=== PATIENT | female | born 1960 | race Caucasian/White ===

== ENCOUNTER → 2018-04-28 | Outpatient (CLI) | payer BC | LOC: CARD 13:26 | PROVIDERS: ATTEND Internal Medicine Cardiovascular Disease | DX: I10 Essential (primary) hypertension (principal); G47.33 Obstructive sleep apnea (adult) (pediatric); E66.9 Obesity, unspecified; E11.9 Type 2 diabetes mellitus without complications | CPT/HCPCS: 93306 ==

== ENCOUNTER → 2020-12-29 | Outpatient (CLI) | payer BC | LOC: CARD 14:40 | PROVIDERS: ATTEND Internal Medicine Cardiovascular Disease | DX: I10 Essential (primary) hypertension (principal); I25.10 Atherosclerotic heart disease of native coronary artery without angina pectoris | CPT/HCPCS: 93306 ==

== ENCOUNTER → 2021-01-05 | Outpatient (CLI) | payer BC ==
[~2021-01-05] VITALS: Ht 162 cm; Wt 118.0 kg
[~2021-01-05] MED LIST: CATHETER FLUSH 10 ML SYR IV PRN; REGADENOSON 0.4 MG/5 ML SYR (LEXISCAN) IV ONE
[2021-01-05 09:23] VITALS: BP 143/94
--- NOTE | 2021-01-05 11:07 | Cardiology Stress Test Report ---
Stress Test Report Date of Procedure/Referring: Date of Procedure: January 05, 2021 PCP Whitney Duran MD Admitting Physician Vandana Lindsey MD Indications: HTN Baseline Heart Rate: 59 Baseline Blood Pressure: Blood Pressure Systolic: 143 Blood Pressure Diastolic: 94 Baseline Vitals Vital Signs Date Time Temp Pulse Resp B/P (MAP) Pulse Ox O2 Delivery O2 Flow Rate FiO2 01/05/21 09:23 61 143/94 (110) 98 Baseline EKG: Baseline EKG: NSR Summary After explaining the procedure to the patient, she signed a consent and then brought to the stress nuclear laboratory. Patient received 0.4 mg Lexiscan for stress test, ECG, heart rate and blood pressure were monitored continuously. Resting and stress dose of radio tracer were injected, imaging was acquired and reviewed in short axis, horizontal long axis and vertical long axis views. TID: 1.08 SSS: 7 SDS: 5 EF: 64 1. Patient tolerated Lexiscan well 2. Breast attenuation with mild reversible ischemia involving the basal to mid anterior wall 3. Normal left ventricular size, EF 64% WHITNEY DURAN MD January 05, 2021 11:07
== END ==
LOC: CARD 08:45
PROVIDERS: ATTEND Internal Medicine Cardiovascular Disease
DX: I10 Essential (primary) hypertension (principal); I25.10 Atherosclerotic heart disease of native coronary artery without angina pectoris
CPT/HCPCS: 78452; 93017; A9502

== ENCOUNTER 2021-01-14 13:00 | Day surgery (SDC) | payer BC ==
[~2021-01-14] VITALS: Ht 162 cm; Wt 117.0 kg
[2021-01-14] VITALS (15 sets, daily range): BP systolic 107–154; BP diastolic 63–89
[2021-01-14 11:15] LABS: HEMATOCRIT 40 % (35-52); HEMOGLOBIN 13.3 g/dL (11.5-16.0); MEAN CORPUSCULAR HEMOGLOBIN 31 pg (25-34); MEAN CORPUSCULAR HGB CONC 33 g/dL (32-36); MEAN CORPUSCULAR VOLUME 92 fL (80-99); PLATELET COUNT 308 10^3/uL (130-400); WHITE BLOOD COUNT 8.9 10^3/uL (4.3-11.0)
[2021-01-14 11:16] LABS: BILIRUBIN,URINE NEGATIVE (NEGATIVE); CLARITY,URINE CLEAR; COLOR,URINE YELLOW; GLUCOSE, URINE (UA) NEGATIVE (NEGATIVE); KETONES,URINE NEGATIVE (NEGATIVE); LEUKOCYTE ESTERASE ,URINE NEGATIVE (NEGATIVE); NITRITE,URINE NEGATIVE (NEGATIVE); PH,URINE 6.5 (5-9); PROTEIN,URINE NEGATIVE (NEGATIVE)
[2021-01-14 11:23] LABS: BACTERIA,URINE NEGATIVE /HPF; WBC,URINE RARE /HPF
[2021-01-14 11:26] LABS: PROTHROMBIN TIME PATIENT 13.1 SEC (12.2-14.7)
--- NOTE | 2021-01-14 11:27 | Diagnostic Imaging Report ---
EXAMINATION: Chest 1 view HISTORY: Preoperative evaluation COMPARISON: None available. FINDINGS: Heart size and pulmonary vasculature are normal. The lungs are clear without consolidation, pleural effusion, or pneumothorax. Degenerative changes of the thoracic spine. Osseous structures are otherwise intact. IMPRESSION: 1. No acute radiographic abnormality in the chest. Dictated by: Dictated on workstation # [id number]
[2021-01-14 11:33] LABS: ALANINE AMINOTRANSFERASE 18 U/L (0-55); ALBUMIN 3.9 GM/DL (3.2-4.5); ALKALINE PHOSPHATASE 59 U/L (40-136); BUN/CREATININE RATIO 15; CALCIUM 9.7 MG/DL (8.5-10.1); CARBON DIOXIDE 28 MMOL/L (21-32); CHLORIDE 102 MMOL/L (98-107); CHOLESTEROL 221 MG/DL (< 200); CREATININE SERUM 0.85 MG/DL (0.60-1.30); GFR ESTIMATED > 60; GLUCOSE 105 MG/DL (70-105); HDL CHOLESTEROL 47 MG/DL (40-60); POTASSIUM 3.8 MMOL/L (3.6-5.0); SODIUM 139 MMOL/L (135-145); TOTAL PROTEIN 7.5 GM/DL (6.4-8.2); TRIGLYCERIDES 173 MG/DL (<150); VLDL CHOLESTEROL 35 MG/DL (5-40)
[~2021-01-14 13:00] MED LIST changes: +APIX5TAB PO; +ASPIRIN 325 MG (5 GR) TABLET ONE; -CATHETER FLUSH 10 ML SYR IV PRN; +CHOL-34 PO; +CLOPIDOGREL 300 MG (PLAVIX) TABLET PO ONE; +DRON400T6 PO; +ESCI5TAB16 PO; +HEParin (CATH LAB) 2,000 ML IV ONE; +HEParin 1000 UNIT/ML (10ML VIAL) FOR BOLUS ONE; +HYDR25TA4 PO; +LIDOCAINE 1% INJ 20 ML 20 ML VIAL ONE; +MIDAZOLAM 2 MG/2 ML (VERSED) VIAL ONE; +MIDAZOLAM 5 MG/5 ML (VERSED) VIAL ONE; +MULT-1136 PO; +NEBI5TAB8 PO; +NITRO DRIP 25000 MCG/D5W 250 ML IV ONE; +NS IV 1000 ML 1,000 ML IV SCH; +OMEG-160 PO; -REGADENOSON 0.4 MG/5 ML SYR (LEXISCAN) IV ONE; +VERAPAMIL 5 MG/2 ML (CALAN) VIAL IV ONE; +fentaNYL INJ 100 MCG/2 ML AMP ONE
[2021-01-14] MEDS ORDERED: ASPIRIN 325 MG (5 GR) TABLET ONE (13:04)
--- NOTE | 2021-01-14 13:08 | Conscious Sedation/ASA ---
Conscious Sedation Pre-Proced Time 13:08 ASA Score 3 For ASA 3 and 4: Consider anesthesia and medical clearance. Also, for patients with a history of failed moderate sedation consider anesthesia. Airway Lungs Heart ASA score ASA 1: a normal healthy patient ASA 2: a patient with a mild systemic disease (mid diabetes, controlled hypertension, obesity x ASA 3: a patient with a severe systemic disease that limits activity (angina, COPD, prior Myocardial infarction) ASA 4: a patient with an incapacitating disease that is a constant threat to life (CHF, renal failure) ASA 5: a moribund patient not expected to survive 24 hrs. (ruptured aneurysm) ASA 6: a declared brain- patient whose organs are being harvested. For emergent operations, add the letter E after the classification Mallampati Classification Grade 3 Sedation Plan Analgesia, Amnesia, Plan communicated to team members, Discussed options with patient/fam, Discussed risks with patient/fam The patient is an appropriate candidate to undergo the planned procedure, sedation, and anesthesia. The patient immediately re-assessed prior to indication. WHITNEY TOUSSAINT MD January 14, 2021 1:08 pm
[2021-01-14] MEDS ORDERED: PATIENT MAY USE OWN MEDS, ALL PO SCH (13:15)
--- NOTE | 2021-01-14 13:17 | Cardiac Cath Report ---
Cardiac Cath Report Physician (s)/Quality Tester (s) Physician WHITNEY TOUSSAINT MD Pre-Procedure Diagnosis Pre-Procedure Diagnosis: Coronary artery disease Post-Procedure Note Procedure Start Date: January 14, 2021 Name of Procedure: Left heart catheterization Aortic arch angiogram Right subclavian angiogram Stenting to the circumflex artery Findings/Procedure Note PROCEDURE NOTE: 60-year-old lady with history of hypertension, hyperlipidemia, had an abnormal s tress test, scheduled for cardiac catheterization possible PTCA. After explaining the procedure to the patient, all pros and cons were explained, all questions were answered. The patient signed the consent and then she was placed on the cardiac catheterization laboratory. Groin was prepped SL fashion local anesthesia was used. Sheath placed in the right radial artery, I was unabl e to advance J-wire or Storq wire or Glidewire through the right subclavian artery, I exchanged the catheter and use Tucker right catheter posted in the right subclavian artery and did right subclavian angiogram. Multiple attempt has failed I aborted the procedure and decided to proceed from the groin. 6 Urdu sheath was placed in the right femoral artery, combination of right and left Tucker catheter were used to access the right and left coronary system, Tucker right was prolapsed to the left ventricular cavity, pressure was measured, pullback LV to aorta was done. Then pigtail catheter was placed in the aortic arch and aortic arch angiogram was done. Patient was noted to have severe distal circumflex artery stenosis, 5000 units of heparin were given, BMW wire with EBU guide were advanced through the circumflex artery and predilatation with 3 x 15 balloon then deployment of Maritza 3 x 12 mm stent expanded to 3.1 mm with excellent results. Angiogram showing excellent results. At the end of the procedure the sheath was removed. Minx device deployed in the right groin and vascular band was used in the wrist. FINDINGS: Hemodynamics LV 122/10, end-diastolic pressure of 10 Aorta 121/60 mean of 79 ANATOMY: Left Main is free of obstructive disease Left Anterior Descending is moderate in size with no obstructive disease Left Circumflex has severe distal stenosis, successful stenting using Maritza 3 x 12 mm expanded to 3.12 mm, the circumflex artery is a codominant artery Right Coronary Artery is moderate in size, codominant artery with no obstructive disease LV Gram was not done, pressure was measured Aorta evaluation done with aortic arch angiogram showing normal aortic arch, no dissection or aneurysm, normal origin of the brachiocephalic artery, left carotid and left subclavian arteries Right subclavian angiogram was done with the Tucker right catheter, showing tortuous origin of the right subclavian artery, the right carotid artery is normal, the right brachiocephalic artery was seen and there is no dissection or abnormality. CONCLUSION: 1. Severe distal circumflex artery stenosis successful balloon angioplasty then stenting using Maritza 3 x 12 mm with excellent results 2. Otherwise mild coronary artery disease 3. Normal aortic arch and great vessels of the neck, tortuous origin of the brachiocephalic artery. Normal left carotid and left subclavian artery 4. Tortuous origin of the right subclavian artery and right carotid artery DISCUSSION AND RECOMMENDATION: Patient was started on aspirin and Plavix, maximize medical therapy and monitor Anesthesia Type: Conscious Sedation Estimated blood loss (mL): 10 ml Contrast Amount: 97 ml Total Radiation Dose: 1097 mGy Post-Procedure Diagnosis Post-operative diagnosis: Chest pain Coronary artery disease Hypertension Hyperlipidemia WHITNEY TOUSSAINT MD January 14, 2021 1:17 pm
[2021-01-14] MEDS: NS IV 1000 ML 1,000 ML IV SCH (13:30)
[2021-01-14] MEDS: APIXABAN 5 MG (ELIQUIS) TABLET PO SCH (20:32)
[2021-01-14] MEDS ORDERED: ESCITALOPRAM OXALATE 2.5 MG PO SCH (21:00)
[2021-01-14] MEDS ORDERED: NEBIVOLOL 5 MG TAB (NON-FORMULARY) PO SCH (21:00)
[2021-01-15] MEDS: NS IV 1000 ML 1,000 ML IV SCH (02:05)
[2021-01-15 03:00] VITALS: BP 140/94
[2021-01-15 04:00] LABS: HEMATOCRIT 39 % (35-52); HEMOGLOBIN 12.5 g/dL (11.5-16.0); MEAN CORPUSCULAR HEMOGLOBIN 30 pg (25-34); MEAN CORPUSCULAR HGB CONC 32 g/dL (32-36); MEAN CORPUSCULAR VOLUME 92 fL (80-99); MEAN PLATELET VOLUME 11.2 fL (9.0-12.2); PLATELET COUNT 291 10^3/uL (130-400); WHITE BLOOD COUNT 9.4 10^3/uL (4.3-11.0)
[2021-01-15 04:12] LABS: CHLORIDE 102 MMOL/L (98-107); POTASSIUM 3.9 MMOL/L (3.6-5.0); SODIUM 138 MMOL/L (135-145)
[2021-01-15 04:14] LABS: CALCIUM 9.2 MG/DL (8.5-10.1); GLUCOSE 129 MG/DL (70-105)
[2021-01-15 04:16] LABS: CARBON DIOXIDE 23 MMOL/L (21-32)
[2021-01-15 04:18] LABS: GFR ESTIMATED > 60
[2021-01-15 04:19] LABS: BUN/CREATININE RATIO 16
[2021-01-15] MEDS ORDERED: ASPI-1238 PO (05:36)
[2021-01-15] MEDS ORDERED: CLOP75TA28 PO (05:36)
[2021-01-15] MEDS ORDERED: PANT40SU PO (05:36)
--- NOTE | 2021-01-15 05:37 | Discharge Inst-Post CATH ---
Discharge Inst-CATH/EP Problems Reviewed?: Yes Post Cardiac Cath/EP D/C Inst Follow Up/Plan Appointment with Dr Duran's office in 2-4 weeks <b>CARDIAC CATH/EP PROCEDURE DISCHARGE INSTRUCTIONS</b> ACTIVITY * Go Home directly and rest. * Limit activity of the leg (or wrist if it was used) for 7 days including aerobics, swimming, jogging, bicycling, etc. * Restrict stair-climbing for 7 days if possible, if not, climb up with your non-cath leg, then bring together on the same step. * Avoid lifting, pushing, pulling or excessive movement of the affected extremity for 7 days. * Customary sexual activity may be resumed after 2 days-use caution not to use a position that strains or causes pain to the affected extremity. * No driving for 24 hours. * NO SMOKING. * Avoid straining for bowel movements for 7 days. * Gentle walking on level ground is allowed. * Returning to work will depend on the type of procedure and the results. Your doctor will discuss this with you. CALL YOUR DOCTOR FOR ANY OF THE FOLLOWING: *If bleeding from the puncture site occurs- Apply gentle pressure to site with clean cloth and call your doctor or EMS. * If a knot or lump forms under the skin, increases in size, or causes pain. * If bruising appears to be worsening or moving further down your leg instead of disappearing. * Temperature above 101 F. CARE OF YOUR GROIN INCISION; * Bruising or purple discoloration of the skin near the puncture site is common. * You may shower only, no bathtub bathing for 5 days. Be careful to avoid slipping as your leg may feel stiff. * If a closure device was used on your femoral artery, please see the attached guide regarding care of the device and your leg. * Leave dressing on FOR 24 hours. CARE OF YOUR WRIST INCISION; * Bruising or purple discoloration of the skin near the puncture site is common. * You may shower. * DO NOT submerge wrist. * Leave dressing on FOR 24 hours. WHITNEY DURAN MD January 15, 2021 05:37
[2021-01-15] MEDS ORDERED: ATOR10TA PO (05:38)
[2021-01-15] MEDS ORDERED: MULTIVIT W/MINERALS TAB (THERAGRAN M) PO SCH (07:00)
--- NOTE | 2021-01-15 07:36 | Cardiology Progress Note ---
Subjective Date Seen by Provider: January 15, 2021 Time Seen by Provider: 07:35 Subjective/Events-last exam Patient is feeling well, mild groin discomfort and right ankle pain. No chest pain Review of Systems General: No Chills, No Night Sweats, No Fatigue, No Malaise, No Appetite, No Other HEENT: No Head Aches, No Visual Changes, No Eye Pain, No Ear Pain, No Dysphasia , No Sinus Congestion, No Post Nasal Drip, No Sore Throat, No Other Pulmonary: No Dyspnea, No Cough, No Pleuritic Chest Pain, No Other Cardiovascular: No: Chest Pain, Palpitations, Orthopnea, Paroxysmal Noc. Dyspnea, Edema, Lt Headedness, Other Objective-Cardiology Exam Last Set of Vital Signs Vital Signs 01/15/21 03:00 Temp 36.8 Pulse 64 Resp 22 B/P (MAP) 140/94 (109) Pulse Ox 95 O2 Delivery Room Air Capillary Refill : Less Than 3 Seconds General: Alert, Oriented X3, Cooperative HEENT: Atraumatic, PERRLA Neck: Supple, No JVD, No Thyromegaly Lungs: Clear to Auscultation, Normal Air Movement Heart: Regular Rate, Normal S1, Normal S2, No Murmurs Abdomen: Normal Bowel Sounds, Soft, No Tenderness, No Hepatosplenomegaly, No Masses Extremities: No Clubbing, No Cyanosis, No Edema, Normal Pulses, No Ten derness/Swelling Skin: No Rashes, No Breakdown, No Significant Lesion Neuro: Normal Gait, Normal Speech, Strength at 5/5 X4 Ext, Normal Tone, Sensation Intact Psych/Mental Status: Mental Status NL, Mood NL Results Lab Laboratory Tests 01/14/21 11:09 01/15/21 03:40 A/P-Cardiology Admission Diagnosis Coronary artery disease Hypertension Hyperlipidemia Assessment/Plan Coronary artery disease, status post stenting to the circumflex artery with excellent results, educated on aspirin and Plavix. Chronic anticoagulation, patient was maintained on Eliquis, started on aspirin and Plavix and will continue on triple treatment for 1 months then continue on Plavix and Eliquis only. Patient is starting on Protonix for GI prophylaxis Hypertension, controlled on current medication, monitor blood pressure Hyperlipidemia, starting statin. I will arrange for follow-up as an outpatient WHITNEY TOUSSAINT MD January 15, 2021 07:36
[2021-01-15 07:50] VITALS: BP 138/85
[2021-01-15] MEDS: ASPIRIN E.C. 81 MG (ECOTRIN) TAB PO SCH ×2 (07:55→08:32)
[2021-01-15] MEDS: APIXABAN 5 MG (ELIQUIS) TABLET PO SCH (07:56)
[2021-01-15] MEDS ORDERED: OMEGA 3 (FISH OIL) 1000 MG CAP PO SCH (09:00)
[2021-01-15] MEDS ORDERED: CLOPIDOGREL 75 MG (PLAVIX) TABLET PO SCH (09:00)
[2021-01-15] MEDS ORDERED: NON-FORMULARY MEDICATION 1 EA EA (Multivitamin 1 EACH) PO SCH (09:00)
[2021-01-15] MEDS ORDERED: DRONEDARONE TABLET 400 MG TABLET PO SCH (09:00)
[2021-01-15] MEDS ORDERED: NON-FORMULARY MEDICATION 1 EA EA (Omega-3/Dha/Epa/Fish Oil (Fish Oil 1,000 mg Softgel) 1 E PO SCH (09:00)
== END 2021-01-15 10:40 | disposition home or self-care (01) ==
LOC: CSD 13:24 → CATH 01-15 10:40
PROVIDERS: ATTEND Internal Medicine Cardiovascular Disease
DX: I25.10 Atherosclerotic heart disease of native coronary artery without angina pectoris (principal); I10 Essential (primary) hypertension; E11.9 Type 2 diabetes mellitus without complications; E78.2 Mixed hyperlipidemia; F41.9 Anxiety disorder, unspecified; G47.33 Obstructive sleep apnea (adult) (pediatric); M19.90 Unspecified osteoarthritis, unspecified site; E66.9 Obesity, unspecified; Z68.41 Body mass index [BMI] 40.0-44.9, adult; Z79.01 Long term (current) use of anticoagulants; Z79.899 Other long term (current) drug therapy
CPT/HCPCS: 36140; 36221; 71045; 80053; 80061; 81000; 85027; 85610; 85730; 87081; 93005; 93458; C1725; C1760; C1769 ×3; C1874; C1887; C1894 ×2; C9600; 36415

== ENCOUNTER 2022-04-28 13:15 | Day surgery (SDC) | payer BC ==
[~2022-04-28] VITALS: Ht 162.6 cm; Wt 127.6 kg
[~2022-04-28 13:15] MED LIST changes: +ASPI-1238 PO; -ASPIRIN 325 MG (5 GR) TABLET ONE; +ATOR10TA PO; +CLOP75TA28 PO; -CLOPIDOGREL 300 MG (PLAVIX) TABLET PO ONE; -HEParin (CATH LAB) 2,000 ML IV ONE; -HEParin 1000 UNIT/ML (10ML VIAL) FOR BOLUS ONE; -LIDOCAINE 1% INJ 20 ML 20 ML VIAL ONE; -MIDAZOLAM 2 MG/2 ML (VERSED) VIAL ONE; -MIDAZOLAM 5 MG/5 ML (VERSED) VIAL ONE; -NITRO DRIP 25000 MCG/D5W 250 ML IV ONE; -NS IV 1000 ML 1,000 ML IV SCH; +PANT40SU PO; -VERAPAMIL 5 MG/2 ML (CALAN) VIAL IV ONE; -fentaNYL INJ 100 MCG/2 ML AMP ONE
[2022-04-28 13:40] VITALS: BP 127/74
[2022-04-28] MEDS ORDERED: LIDOCAINE 1% INJ 20 ML VIAL INJ ONE (13:45)
[2022-04-28] MEDS ORDERED: LIDOCAINE 1% INJ 20 ML VIAL ONE (13:47)
--- NOTE | 2022-04-28 14:24 | Implantation of Loop Monitor ---
Implant of Loop Monitior IMPLANTATION OF LOOP MONITOR REPORT DATE OF PROCEDURE: 04/28/22 PREOP DIAGNOSIS: Paroxysmal atrial fibrillation POSTOP DIAGNOSIS: Paroxysmal atrial fibrillation PROCEDURE DETAILS: The patient is a 61 female with history of paroxysmal atrial fibrillation requiring long-term surveillance. Therefore implantable loop recorder was discussed and agreed with the patient. Informed consent was taken. All risks and complications were discussed at length. The patient was draped and prepped in the usual sterile fashion. Local anesthesia was lidocaine, which was given in the substernal area close to the 4th intercostal space. Loop monitor [employer] with serial number [id number] was implanted according to the protocol. Steri- Strips were placed at the end of the procedure. There were no complications and the patient tolerated the procedure well. ANESTHESIA: Local anesthesia with lidocaine. COMPLICATIONS: None CONTRAST/FLUOROSCOPY: None CONCLUSION: Successful implantation of loop monitor with no complication FINAL DIAGNOSIS: Paroxysmal atrial fibrillation Palpitation Hypertension Hyperlipidemia WHITNEY TOUSSAINT MD Apr 28, 2022 14:24
== END 2022-04-28 14:55 | disposition home or self-care (01) ==
LOC: CATH 13:15
PROVIDERS: ATTEND Internal Medicine Cardiovascular Disease
DX: I48.0 Paroxysmal atrial fibrillation (principal); I10 Essential (primary) hypertension; E11.9 Type 2 diabetes mellitus without complications; G47.33 Obstructive sleep apnea (adult) (pediatric); E66.9 Obesity, unspecified; E78.2 Mixed hyperlipidemia; Z68.42 Body mass index [BMI] 45.0-49.9, adult; Z79.899 Other long term (current) drug therapy; Z79.82 Long term (current) use of aspirin; Z79.01 Long term (current) use of anticoagulants
CPT/HCPCS: 33285; C1764